=== PATIENT | female | born 1950 | race Caucasian/White ===

== ENCOUNTER 2017-05-28 09:38 | Observation (INO) ==
[2017-05-28] MEDS ORDERED: DILTIAZEM 25 MG/5 ML VIAL IV ONE (09:49)
--- NOTE | 2017-05-28 09:54 | Emergency Department Note ---
Chest Pain HPI - General Chief Complaint: Chest Pain Stated Complaint: Chest pain, heart palpitations, confusion Time Seen by Provider: 05/28/17 09:49 Source: patient Mode of arrival: ambulatory Limitations: altered mental status - History of Present Illness HPI Narrative: This patient began having chest tightness and tachycardia last evening. She says she slept fairly well through the night but when she got to work today she did not feel great and she continued to have tachycardia and chest tightness. She has had some cardiac workup in the past for chest tightness but has not had an angiogram. She has had trouble with confusion for a long period of time and has had a full neurologic evaluation by neurologist for that. There is nothing new from that standpoint. She also feels slightly short of breath. - Related Data Home Medications Medication Instructions Recorded Confirmed Eszopiclone [Lunesta] 3 mg PO HS 01/11/15 05/28/17 LORazepam [Ativan] 2 mg PO BID PRN 01/11/15 05/28/17 Nitroglycerin [Nitrostat] 0.4 mg SL Q5M PRN 01/11/15 08/31/15 Aspirin [Aspirin EC] 325 mg PO DAILY 08/31/15 09/05/15 Atorvastatin [Lipitor] 10 mg PO HS 08/31/15 05/28/17 Venlafaxine HCl [Venlafaxine HCl 150 mg PO DAILY 05/28/17 05/28/17 ER] buPROPion HCL [Bupropion Xl] 150 mg PO DAILY 05/28/17 05/28/17 Previous Rx's Medication Instructions Recorded Docusate Sodium [Colace] 100 mg PO BID #30 capsule 09/06/15 Methocarbamol [Robaxin] 750 mg PO Q6HP PRN #30 tablet 09/06/15 Allergies Allergy/AdvReac Type Severity Reaction Status Date / Time morphine Allergy Mild Itching Verified 09/05/15 07:42 codeine Allergy Unknown Unknown Verified 09/05/15 07:42 Review of Systems All systems ED: reviewed and negative except as stated. Chest Pain PMH - Past Medical History Medical history: Reports: arthritis, asthma, GERD, migraine, other (Rheumatic fever) Surgical history ED: Reports: hysterectomy, orthopedic, other, tonsillectomy - Social History smoking status: Never smoker Physical Exam Limitations: altered mental status General appearance: alert Head: atraumatic, normocephalic Eye: Present: normal appearance ENT: normal exam Neck: Present: normal inspection Chest: Present: normal inspection Respiratory: Present: normal lung sounds bilaterally Cardiovascular: Present: regular rate, normal rhythm, normal heart sounds Abdominal: Present: soft. Absent: distention, tenderness Neurological: Present: alert Psychiatric: Present: normal affect, normal mood Skin: Present: warm, dry, intact Course Vital Signs Temperature 99.1 F H 05/28/17 09:39 Pulse Rate 129 H 05/28/17 09:39 Respiratory Rate 18 05/28/17 09:39 Blood Pressure 149/117 05/28/17 09:39 Pulse Oximetry (%) 98 05/28/17 09:39 Temperature 97.7 F 05/29/17 04:00 Pulse Rate 72 05/29/17 03:00 Respiratory Rate 21 05/29/17 06:03 Blood Pressure 128/74 05/29/17 06:03 Pulse Oximetry (%) 94 05/29/17 05:01 Chest Pain - MDM Narrative Medical decision making narrative: Patient received diltiazem IV and her heart rate did come down. She was admitted to telemetry by Dr. Robison. - Lab Data Lab results reviewed: Yes I reviewed the patient's lab results. Result diagrams: 05/29/17 04:00 05/29/17 04:00 Lab Results 05/28/17 05/28/17 05/28/17 Range/Units 10:04 10:04 10:05 WBC 14.4 H (4.5-11.0) K/mcL RBC 5.19 (4.00-5.20) M/mcL Hgb 15.5 H (12.0-15.0) g/dL Hct 45.2 (36.0-48.0) % MCV 87.0 (80.0-100.0) fL MCH 29.8 (26.0-34.0) pg MCHC 34.3 (31.0-36.0) g/dL RDW 13.0 (11.5-14.5) % Plt Count 279 (140-440) K/mcL MPV 8.2 (7.4-10.4) fL Gran % 79.1 H (38.0-78.0) % Lymph % (Auto) 13.1 L (15.5-49.0) % [place] % (Auto) 5.5 (1.0-12.0) % Eos % (Auto) 2.0 (0.0-7.0) % Baso % (Auto) 0.3 (0.0-2.0) % Gran # 11.4 H (1.8-8.0) K/mcL Lymph # (Auto) 1.9 (1.5-4.8) K/mcL [place] # (Auto) 0.8 (0.1-0.9) K/mcL Eos # (Auto) 0.3 (0.0-0.7) K/mcL Baso # (Auto) 0 (0.0-0.3) K/mcL D-Dimer (0.00-0.40) ug/ml Sodium 144 (133-145) mmol/L Potassium 3.5 (3.3-5.1) mmol/L Chloride 107 (96-108) mmol/L Carbon Dioxide 20 L (22-30) mmol/L Anion Gap 17.0 H (8-16) BUN 19 (8-23) mg/dl Creatinine 0.8 (0.6-1.1) mg/dl GFR Calculation 77 Glucose 127 H (70-105) mg/dL Calcium 9.5 (8.6-10.4) mg/dl Total Bilirubin 0.5 (0.0-1.0) mg/dL AST 18 (0-37) U/l ALT 22 (0-40) U/l Alkaline Phosphatase 59 (39-117) U/L Troponin T < 0.01 (0-0.03) ng/ml Total Protein 6.7 (5.9-8.4) gm/dL Albumin 4.3 (3.2-5.2) gm/dL Globulin 2.4 (2.2-3.7) gm/dL Albumin/Globulin Ratio 1.8 (1.0-2.3) TSH 0.96 (0.27-5.01) uIU/ml Urine Color Urine Appearance Urine pH (5.0-9.0) Ur Specific [place] (1.000-1.035) Urine Protein (NEG) mg/dL Urine Glucose (UA) (NEG) mg/dL Urine Ketones (NEG) mg/dL Urine Occult Blood (<0.03) mg/dL Urine Nitrate (NEG) Urine Bilirubin (NEG) mg/dL Urine Urobilinogen (NEG) mg/dL Ur Leukocyte Esterase (NEG) /uL Urine RBC (0-1) /hpf Urine WBC (0-4) /hpf Ur Squamous Epith Cells (0-4) /hpf Urine Bacteria (0) /hpf Urine Mucus (0) /hpf Ur Culture Indicated? 05/28/17 05/28/17 Range/Units 10:05 10:37 WBC (4.5-11.0) K/mcL RBC (4.00-5.20) M/mcL Hgb (12.0-15.0) g/dL Hct (36.0-48.0) % MCV (80.0-100.0) fL MCH (26.0-34.0) pg MCHC (31.0-36.0) g/dL RDW (11.5-14.5) % Plt Count (140-440) K/mcL MPV (7.4-10.4) fL Gran % (38.0-78.0) % Lymph % (Auto) (15.5-49.0) % [place] % (Auto) (1.0-12.0) % Eos % (Auto) (0.0-7.0) % Baso % (Auto) (0.0-2.0) % Gran # (1.8-8.0) K/mcL Lymph # (Auto) (1.5-4.8) K/mcL [place] # (Auto) (0.1-0.9) K/mcL Eos # (Auto) (0.0-0.7) K/mcL Baso # (Auto) (0.0-0.3) K/mcL D-Dimer 0.30 (0.00-0.40) ug/ml Sodium (133-145) mmol/L Potassium (3.3-5.1) mmol/L Chloride (96-108) mmol/L Carbon Dioxide (22-30) mmol/L Anion Gap (8-16) BUN (8-23) mg/dl Creatinine (0.6-1.1) mg/dl GFR Calculation Glucose (70-105) mg/dL Calcium (8.6-10.4) mg/dl Total Bilirubin (0.0-1.0) mg/dL AST (0-37) U/l ALT (0-40) U/l Alkaline Phosphatase (39-117) U/L Troponin T (0-0.03) ng/ml Total Protein (5.9-8.4) gm/dL Albumin (3.2-5.2) gm/dL Globulin (2.2-3.7) gm/dL Albumin/Globulin Ratio (1.0-2.3) TSH (0.27-5.01) uIU/ml Urine Color Yellow Urine Appearance Clear Urine pH 5.0 (5.0-9.0) Ur Specific [place] 1.024 (1.000-1.035) Urine Protein Neg (NEG) mg/dL Urine Glucose (UA) Negative (NEG) mg/dL Urine Ketones Neg (NEG) mg/dL Urine Occult Blood 0.2 A (<0.03) mg/dL Urine Nitrate Neg (NEG) Urine Bilirubin Neg (NEG) mg/dL Urine Urobilinogen Neg (NEG) mg/dL Ur Leukocyte Esterase Neg (NEG) /uL Urine RBC 3 H (0-1) /hpf Urine WBC 1 (0-4) /hpf Ur Squamous Epith Cells 1 (0-4) /hpf Urine Bacteria 0 (0) /hpf Urine Mucus Many A (0) /hpf Ur Culture Indicated? No - Radiology Data Radiology results reviewed: Yes I reviewed the patient's radiology results. Disposition Pt seen by [facility] only: No Clinical Impression: Atrial fibrillation with RVR Disposition: Xfer As Inpt ([facility]) Condition: Fair
[2017-05-28] MEDS ORDERED: LACTATED RINGERS 1,000 ML IV SCH (10:00)
[2017-05-28] MEDS ORDERED: DILTIAZEM 125 MG in DEXTROSE 5% IN WATER 100 ML IV SCH (10:00)
--- NOTE | 2017-05-28 10:09 | XRay Report ---
HISTORY: Reason for Exam:chest pain FINDINGS: The lungs are clear and well expanded. The heart size, pulmonary vasculature, mediastinum, flavia and pleura are normal. There is a prosthesis in the left shoulder. Thoracic spine has a moderate dextroscoliotic curvature. IMPRESSION: Scoliosis but otherwise normal chest Interpreted and Authenticated by: Arjun Mcrae 05/28/17
[2017-05-28 10:31] LABS: Basophils # (Auto) 0 K/mcL (0.0-0.3); Basophils % (Auto) 0.3 % (0.0-2.0); Eosinophils # (Auto) 0.3 K/mcL (0.0-0.7); Granulocytes % (Auto) 79.1 % (38.0-78.0); Lymphocytes # (Auto) 1.9 K/mcL (1.5-4.8); Lymphocytes % (Auto) 13.1 % (15.5-49.0); Mean Corpuscular HGB Conc 34.3 g/dL (31.0-36.0); Mean Corpuscular Hemoglobin 29.8 pg (26.0-34.0); Monocytes # (Auto) 0.8 K/mcL (0.1-0.9); Monocytes % (Auto) 5.5 % (1.0-12.0); Platelet Count 279 K/mcL (140-440); RBC 5.19 M/mcL (4.00-5.20)
[2017-05-28 11:06] LABS: ALT/SGPT 22 U/l (0-40); Albumin 4.3 gm/dL (3.2-5.2); Albumin/Globulin Ratio 1.8 (1.0-2.3); Alkaline Phosphatase 59 U/L (39-117); Blood Urea Nitrogen 19 mg/dl (8-23)
[2017-05-28 11:13] LABS: Appearance,Urine CLEAR; Bacteria,Urine 0 /hpf (0); Bilirubin,Urine NEG (NEG); Color,Urine YELLOW; Glucose,Urine (UA) NEGATIVE (NEG); Leukocyte Esterase,Urine NEG /uL (NEG); Mucus,Urine MANY /hpf (0); Protein,Urine NEG (NEG); Specific Gravity,Urine 1.024 (1.000-1.035); Urine Blood 0.2 mg/dL (<0.03); Urine RBC 3 /hpf (0-1); Urine Squamous Epithelial Cell 1 /hpf (0-4); Urine WBC 1 /hpf (0-4); Urobilinogen,Urine NEG (NEG)
[2017-05-28] MEDS ORDERED: LORazepam 2 MG/ML VIAL IV ONE (11:37)
[2017-05-28] MEDS ORDERED: NALOXONE HCL 0.4 MG/ML VIAL IV PRN (13:05)
[2017-05-28] MEDS ORDERED: IPRATROPIUM/ALBUTEROL 3 ML AMPUL.NEB NEB PRN (13:05)
[2017-05-28] MEDS ORDERED: 0.9 % SODIUM CHLORIDE 1,000 ML IV SCH (13:05)
[2017-05-28] MEDS: 0.9 % SODIUM CHLORIDE 10 ML SYRINGE IV SCH ×2 (15:22→21:56)
[2017-05-28] MEDS: METOPROLOL TARTRATE 25 MG TABLET PO SCH ×2 (15:25→20:47)
--- NOTE | 2017-05-28 15:36 | Internal Med History&Physical ---
Medical - H&P: HPI Patient information: Note initiated : 05/28/17 at 3:30 pm Service Date, if different from initiated Date: [] Patient: Vandana Roberson a 67 y/o F admitted on 05/28/17 for Chest pain, heart palpitations, confusion. Chief Complaint: [] History of present illness: Ms. Roberson is a 67 year old Female with h/o cardiac murmur, h/o rheumatic fever as a child presents to the ER today with complaints of palpitations x 1 day. The patient notes that she has been going through a rough phase in her life, due to of her daughter, she has not been herself due to that fact. The patient has increased tiredness and fatigue, which has been worsening since the of her daughter. She has attributed these symptoms to depression. She is being treated for same by primary care provider. patient has had palpitations intermittently in the past. She also has had chest pain intermittently at rest and takes when necessary nitroglycerin. According to her. She is worked up for cardiac disease and notes that her stress tests done in the past have been negative. Does not recollect having done a cardiac catheterization This time around. Since last night. The patient has been experiencing palpitations, some shortness of breath and chest tightness associated with that. She notes that last night she did not want to come to the emergency social slept it off. This morning at work she felt it again and it was making her slightly dizzy and made her more weak and fatigued. She therefore came to the emergency room for further evaluation. She denies any headache, does have intermittent dizziness, no acute changes in vision, no difficulty or change in hearing, no difficulty in swallowing, had some nausea, no vomiting. Chronic constipation. No diarrhea. No urinary complaints. She has a chronic dry cough. She denies any acute joint pains or back pain. Skin rashes. Admits depression in the emergency room the patient was noted to be in atrial fibrillation, rapid ventricular rate. She was started on IV Cardizem drip and admitted to the hospital for further management. Chest x-ray was reported as negative, urinalysis is negative, few rbc's noted. Patient had leukocytosis, the patient has a limited effort tolerance, denies edema, feet. She denies any history of hypertension, but does not that her blood pressure has run high intermittently. Does not take any medications for same. No history of diabetes , no history of heart failure, no history of stroke. She has history of rheumatic fever, has a heart murmur, not sure if she has rheumatic heart disease. She is willing to consider anticoagulation for stroke prophylaxis. All systems: reviewed and no additional remarkable complaints except as stated ( as per HPI) Medical - H&P: PMH Medical history: rheumatic fever Depression Hyperlipidemia Obesity Surgical history: tubal ligation Hysterectomy Shoulder repair Cyst removal from right kidney Pertinent family history: Mother with history of cardiac disease and myocardial infarction before the age of 65 Family history of diabetes Social history: Works as a social work job titles in [employer] Denies smoking, used to smoke in the past more than 30 years ago Denies alcohol abuse Denies recreational drug use Medical - H&P: Meds Home Medications Medication Instructions Recorded Confirmed Type Eszopiclone [Lunesta] 3 mg PO HS 01/11/15 05/28/17 History LORazepam [Ativan] 2 mg PO BID PRN 01/11/15 05/28/17 History Nitroglycerin [Nitrostat] 0.4 mg SL Q5M PRN 01/11/15 08/31/15 History Aspirin [Aspirin EC] 325 mg PO DAILY 08/31/15 09/05/15 History Atorvastatin [Lipitor] 10 mg PO HS 08/31/15 05/28/17 History Docusate Sodium [Colace] 100 mg PO BID #30 capsule 09/06/15 Rx Methocarbamol [Robaxin] 750 mg PO Q6HP PRN #30 tablet 09/06/15 Rx Venlafaxine HCl [Venlafaxine HCl 150 mg PO DAILY 05/28/17 05/28/17 History ER] buPROPion HCL [Bupropion Xl] 150 mg PO DAILY 05/28/17 05/28/17 History Allergies Allergy/AdvReac Type Severity Reaction Status Date / Time morphine Allergy Mild Itching Verified 09/05/15 07:42 codeine Allergy Unknown Unknown Verified 09/05/15 07:42 Medical - H&P: Exam - Constitutional Vitals: Temp Pulse Resp BP Pulse Ox 97.6 F 89 16 138/91 98 05/28/17 14:01 05/28/17 12:31 05/28/17 14:01 05/28/17 14:01 05/28/17 14:01 Exam: GENERAL: The patient is a well-developed, well-nourished in no apparent distress. Is alert and oriented x3. VITAL SIGNS: Reviewed and as noted elsewhere. HEENT: Head is normocephalic and atraumatic. Extraocular muscles are intact. Pupils are equal, round, and reactive to light. Nares appeared normal. Mouth appears any without lesions. Mucous membranes are moist. NECK: Normal to inspection, Supple, No lymphadenopathy or thyromegaly. LUNGS: Air entry equal on both sides, no wheezing, crackles or rhonchi noted. No accessory muscles of respiration HEART: Regular tachycaric, irregular rhythm, systolic murmur, mitral region, 4/ 6 S1 and S2 heard, no Gallop, S3 or Rub Noted, ABDOMEN: Soft, nontender, and nondistended. Positive bowel sounds. No hepatosplenomegaly was noted. EXTREMITIES: No cyanosis, clubbing, rash, lesions or edema. NEUROLOGIC: Cranial nerves II through XII are grossly intact. Motor and Sensory System Grossly Intact PSYCHIATRIC: Normal affect, Normal Mood. Appropriate Behavior. SKIN: No ulceration or wounds noted, No jaundice, No rash noted. Medical - H&P: Reslt - Labs CBC & Chem 7: 05/28/17 10:05 05/28/17 10:04 Labs: Short CBC 05/28/17 Range/Units 10:05 WBC 14.4 H (4.5-11.0) K/mcL Hgb 15.5 H (12.0-15.0) g/dL Hct 45.2 (36.0-48.0) % Plt Count 279 (140-440) K/mcL BMP 05/28/17 10:04 Sodium 144 Potassium 3.5 Chloride 107 Carbon Dioxide 20 L BUN 19 Creatinine 0.8 Glucose 127 H Calcium 9.5 Cardiac Enzymes 05/28/17 Range/Units 10:04 Troponin T < 0.01 (0-0.03) ng/ml Liver Function 05/28/17 Range/Units 10:04 Total Bilirubin 0.5 (0.0-1.0) mg/dL AST 18 (0-37) U/l ALT 22 (0-40) U/l Alkaline Phosphatase 59 (39-117) U/L Albumin 4.3 (3.2-5.2) gm/dL Urine 05/28/17 Range/Units 10:37 Urine Color Yellow Urine Appearance Clear Urine pH 5.0 (5.0-9.0) Ur Specific [place] 1.024 (1.000-1.035) Urine Protein Neg (NEG) mg/dL Urine Glucose (UA) Negative (NEG) mg/dL Medical - H&P: A/P - Narrative A/P Narrative: A/P Atrial fibrillation with RVR: monitor on PCU, on cardizem drip, start on po metoprolol and wean off drip as tolerated, [id number] score is 2, will need anticoagulation with coumadin, will start lovenox and warfarain treatment. Major risks benefits of the medication discussed, all questions answered. If echo does not show rheumatic heart disease, can consider newer anticoagulation agents. Get echo, denies any h/o significant bleeding. Depression/ Insomnia: Due to loss of daugther, resume home meds leucocytosis: chr cough, x ray negt, ua neg, check procalcitonin. DVT on lovenox. Diet Regular Full code
[2017-05-28] MEDS: ENOXAPARIN 100 MG/ML SYRINGE SQ SCH (16:08)
[2017-05-28] MEDS: LORazepam 1 MG TABLET PO PRN (16:08)
[2017-05-28] MEDS: 0.9 % SODIUM CHLORIDE 250 ML IV SCH ×2 (17:00→19:45)
[2017-05-28] MEDS: ACETAMINOPHEN 325 MG TABLET PO PRN (17:44)
[2017-05-28] MEDS: DOCUSATE SODIUM 100 MG CAPSULE PO SCH (20:47)
[2017-05-28] MEDS ORDERED: ATORVASTATIN 20 MG TABLET PO SCH (21:00)
[2017-05-28] MEDS ORDERED: SENNOSIDES 1 TABLET PO PRN (21:00)
[2017-05-28] MEDS ORDERED: Eszopiclone [Lunesta] 3 MG PO SCH (21:00)
[2017-05-28] MEDS: DILTIAZEM 125 MG in DEXTROSE 5% IN WATER 100 ML IV SCH (21:56)
[2017-05-28] MEDS ORDERED: HEPARIN 5,000 UNIT/ML VIAL SQ SCH (22:00)
[2017-05-29] MEDS: ENOXAPARIN 100 MG/ML SYRINGE SQ SCH ×2 (00:35→08:40)
[2017-05-29] MEDS: 0.9 % SODIUM CHLORIDE 10 ML SYRINGE IV SCH ×2 (05:38→14:08)
[2017-05-29 05:40] LABS: Basophils # (Auto) 0 K/mcL (0.0-0.3); Basophils % (Auto) 0.4 % (0.0-2.0); Eosinophils # (Auto) 0 K/mcL (0.0-0.7); Eosinophils % (Auto) 0.6 % (0.0-7.0); Granulocytes % (Auto) 57.8 % (38.0-78.0); Lymphocytes # (Auto) 2.1 K/mcL (1.5-4.8); Lymphocytes % (Auto) 31.9 % (15.5-49.0); Mean Cell Volume 86.3 fL (80.0-100.0); Mean Corpuscular HGB Conc 34.1 g/dL (31.0-36.0); Mean Corpuscular Hemoglobin 29.4 pg (26.0-34.0); Monocytes # (Auto) 0.6 K/mcL (0.1-0.9); Monocytes % (Auto) 9.3 % (1.0-12.0); Platelet Count 244 K/mcL (140-440); RBC 4.51 M/mcL (4.00-5.20); Red Cell Distribution Width 12.5 % (11.5-14.5)
[2017-05-29 05:49] LABS: ALT/SGPT 18 U/l (0-40); Albumin 3.6 gm/dL (3.2-5.2); Albumin/Globulin Ratio 1.7 (1.0-2.3); Alkaline Phosphatase 50 U/L (39-117); Bilirubin,Direct < 0.2 mg/dL (0.0-0.3); Blood Urea Nitrogen 14 mg/dl (8-23); Gamma Glutamyl Transpeptidase 32 U/L (5-36); Uric Acid 4.2 mg/dL (2.5-8.0)
[2017-05-29] MEDS: ACETAMINOPHEN 325 MG TABLET PO PRN (08:38)
[2017-05-29] MEDS: METOPROLOL TARTRATE 25 MG TABLET PO SCH (08:39)
[2017-05-29] MEDS: buPROPion 150 MG TAB.XL.24H PO SCH ×2 (08:40→08:47)
[2017-05-29] MEDS ORDERED: VENLAFAXINE 75 MG CAP.XL.24H PO SCH (09:00)
[2017-05-29] MEDS: DOCUSATE SODIUM 100 MG CAPSULE PO SCH (09:47)
[2017-05-29] MEDS: HYDROmorphone 2 MG/ML VIAL IV PRN ×2 (09:58→14:08)
[2017-05-29] MEDS: ONDANSETRON 4 MG/2 ML VIAL IV PRN ×2 (10:04→14:07)
[2017-05-29] MEDS: DILTIAZEM 125 MG in DEXTROSE 5% IN WATER 100 ML IV SCH (10:14)
[2017-05-29] MEDS: 0.9 % SODIUM CHLORIDE 250 ML IV SCH (10:14)
--- NOTE | 2017-05-29 10:16 | Cat Scan Report ---
History: Headaches Findings: The brain was imaged without contrast at 2.5 mm intervals. There is mild generalized atrophy, predominantly involving the frontal and temporal lobes. The lateral and third ventricles are mildly dilated. This is somewhat out of proportion to the underlying atrophy. The ventricular dilatation has increased since the prior MRI done on 01/11/15. There are subtle areas of decreased attenuation in the white matter within the centrum semiovale in both frontal lobes. Scattered white matter lesions were seen bilaterally on the prior MRI. There is no evidence of an acute infarct. No hemorrhage or mass effect are present. There is no abnormal extra-axial fluid collection. The visualized sinuses are clear. Impression: Borderline hydrocephalus, accentuated by mild atrophy Mild chronic white matter disease in the frontal lobes which may be due to white matter ischemia or degeneration Interpreted and Authenticated by: Arjun Mcrae 05/29/17
[2017-05-29] MEDS: LORazepam 1 MG TABLET PO PRN (12:26)
[2017-05-29] MEDS ORDERED: NITROGLYCERIN 0.4 MG TAB.SUBL SL PRN (13:48)
--- NOTE | 2017-05-29 15:31 | Discharge Summary ---
Medical - DS: Prov Patient information: Note initiated : 05/29/17 at 3:22 pm Service Date, if different from initiated Date: [] Patient: Vandana Roberson 67 y/o F admitted on 05/28/17 for Chest Pain,Heart Palpitations,Confusion/Afib w/RVR. Chief Complaint: [] Date of admission: 05/28/17 13:00 Discharge date: 05/29/17 Primary care physician: Linda Terry Admitting clinician: Milton Robison Consults: 05/28/17 10:26 Consult to Physician [CONS] Stat Comment: Consulting Provider: Milton Robison Reason For Exam: Physician to Consult Discharging clinician: Milton Robison Medical - DS: Meds - Discharge Medications Prescriptions: Apixaban [Eliquis] 5 mg PO BID #60 tab HYDROmorphone HCL [Dilaudid] 2 mg PO Q6HP PRN #10 tab PRN Reason: Headache Metoprolol Tartrate [Lopressor] 25 mg PO BID #60 tab Active and Home Medications: Home Medications Eszopiclone [Lunesta] 3 mg PO HS 01/11/15 [History Confirmed 05/28/17 Last Taken 09/04/15] LORazepam [Ativan] 2 mg PO BID PRN 01/11/15 [History Confirmed 05/28/17 Last Taken 09/04/15] Nitroglycerin [Nitrostat] 0.4 mg SL Q5M PRN 01/11/15 [History Confirmed Last Taken Unknown] Aspirin [Aspirin EC] 325 mg PO DAILY 08/31/15 [History Confirmed 09/05/15 Last Taken 08/29/15] Atorvastatin [Lipitor] 10 mg PO HS 08/31/15 [History Confirmed 05/28/17 Last Taken 09/04/15] Docusate Sodium [Colace] 100 mg PO BID #30 capsule 09/06/15 [Rx Last Taken Unknown] Methocarbamol [Robaxin] 750 mg PO Q6HP PRN #30 tablet 09/06/15 [Rx Last Taken Unknown] Venlafaxine HCl [Venlafaxine HCl ER] 150 mg PO DAILY 05/28/17 [History Confirmed 05/28/17 Last Taken Unknown] Medical - DS: Hosp Hospital course: Ms. Roberson is a 67 year old Female with h/o cardiac murmur, h/o rheumatic fever as a child presented to the ER today with complaints of palpitations x 1 day. The patient has had palpitations intermittently in the past. This time she has noted palpitations since the night before admission, which was associated with diziness, and again the day of admission and hence came to the ER. in the emergency room the patient was noted to be in atrial fibrillation, rapid ventricular rate. She was started on IV Cardizem drip and admitted to the hospital for further management. Chest x-ray was reported as negative, urinalysis is negative, few rbc's noted. Patient had leukocytosis, She has history of rheumatic fever, has a heart murmur, not sure if she has rheumatic heart disease. Atrial fibrillation: new onset, treated with IV cardizem drip, switched to po metoprolol to which she responded well. she will be discharged on PO metoprolol tartate 25mg bid. She had a echo done which showed LVH, hyperdynamic LV, normal LVEF, dialated LA, no significant valvular pathology. The patient has a CHADSVASC score of 3. She is a candiate for anticoagulation. Started on eliquis 5mg bid. Major risks benefits of the medication discussed, all questions answered. Afib likely secondary to Chr HTN. HTN: patient reports that she has had high bp in the past but not treated, she did have elevated bp during the hospital stay, more importantly she has LVH on the echo which likely is due to long standing HTN, she would warrant a more aggressive BP control, would titrate medications as outpatient, may need FESTUS/ ARB. Will leave this decision to PCP. Headache: During the hospital stay, patient reported headache, worst migraine headache she had, since she was started on anticoagulation CT head was done which was neg for hemorrhage, but did show worsening hydrocephalus, it seems patient has h/o dilated ventricles based on previous imaging and there is some worsening this time in comparison with the CT. The patent follows with Dr Douglas , advised to follow up with her for further treatment. Not sure if this is playing a role in the headaches. The pt had a low grade temp during hospital stay, cxr neg, ua neg, (has chr microscopic hematuria), and procalcitonin neg, CT head neg for sinusitis. The rest of the stay in the hospital was uneventful. At the time of discharge pt is ambulatory, tolerating po diet well and not in distress. Discharge diagnosis: Atrial fibrillation new onset, - Time Spent with Patient Total time spent providing and/or coordinating discharge services: Greater than 30 minutes Medical - DS: Exam - Constitutional Vitals: Vital Signs Temp Pulse Resp BP Pulse Ox 05/29/17 14:00 18 150/97 96 05/29/17 13:01 16 132/71 96 05/29/17 12:01 99.6 F H 162/82 97 05/29/17 11:01 165/90 96 05/29/17 10:21 154/85 95 05/29/17 09:29 151/77 96 05/29/17 09:23 133/74 95 05/29/17 08:43 98.3 F 123/94 97 05/29/17 07:03 18 142/79 97 05/29/17 07:00 97 05/29/17 06:03 21 128/74 05/29/17 05:01 20 123/70 94 05/29/17 04:17 19 130/68 95 05/29/17 04:00 97.7 F 19 130/68 95 05/29/17 03:00 72 22 108/60 93 05/29/17 02:00 63 21 124/67 96 05/29/17 01:00 22 109/64 96 05/29/17 00:00 96.7 F L 71 20 101/52 94 05/28/17 23:00 74 26 H 115/54 96 05/28/17 22:12 73 25 H 100/56 94 05/28/17 22:11 69 16 100/56 95 05/28/17 21:01 67 17 129/72 95 05/28/17 20:01 99.0 F H 14 106/71 05/28/17 19:58 99.0 F H 94 H 18 106/71 96 05/28/17 19:03 99.9 F H 19 111/77 96 05/28/17 18:58 31 H 05/28/17 18:29 99.0 F H 05/28/17 18:12 82 17 96 05/28/17 18:01 98.1 F 19 117/63 98 05/28/17 17:01 98.1 F 15 111/84 98 05/28/17 16:10 99.0 F H 72 20 109/89 98 05/28/17 16:09 82 17 96 05/28/17 16:00 15 124/109 Intake and Output 05/29/17 05/29/17 05/29/17 05:59 13:59 21:59 Intake Total 340 / 340 Output Total 925 / 925 975 / 975 700 / 700 Balance -925 / -925 -635 / -635 -700 / -700 Intake: Oral 340 / 340 Output: Void Amount 925 / 925 975 / 975 700 / 700 Other: Meal Breakfast Percent of Meal Consumed 100% Feeding Ability Independent # Voids 1 1 2 Additional comments: Constitutional; Afebrile, cooperative, alert, not in distress. Eyes- No icterus, , No periorbital swelling Ears- Ext ear normal, hearing normal to conversation. Neck- Midline trachea, supple Respiratory system: Air Entry equal on both sides, No crackles or wheezing, no rhonchi. CVS- Rate normal rhythm irregular, S1,S2 heard, no gallop, no rub. Abdomen- Soft nontender abdomen, no organomegaly, no tenderness, no guarding or rigidity, [employer]- AOOx3, moving all extremities, no gross focal deficit noted. Medical - DS: Data Procedures and tests throughout hospitalization: Chest X ray IMPRESSION: Scoliosis but otherwise normal chest Head CT History: Headaches Findings: The brain was imaged without contrast at 2.5 mm intervals. There is mild generalized atrophy, predominantly involving the frontal and temporal lobes. The lateral and third ventricles are mildly dilated. This is somewhat out of proportion to the underlying atrophy. The ventricular dilatation has increased since the prior MRI done on 01/11/15. There are subtle areas of decreased attenuation in the white matter within the centrum semiovale in both frontal lobes. Scattered white matter lesions were seen bilaterally on the prior MRI. There is no evidence of an acute infarct. No hemorrhage or mass effect are present. There is no abnormal extra-axial fluid collection. The visualized sinuses are clear. Impression: Borderline hydrocephalus, accentuated by mild atrophy Mild chronic white matter disease in the frontal lobes which may be due to white matter ischemia or degeneration Labs on day of discharge: Labs from last 24 hours 05/29/17 05/29/17 05/28/17 04:00 04:00 15:30 WBC 6.5 RBC 4.51 Hgb 13.3 Hct 38.9 MCV 86.3 MCH 29.4 MCHC 34.1 RDW 12.5 Plt Count 244 MPV 8.1 Gran % 57.8 Lymph % (Auto) 31.9 [place] % (Auto) 9.3 Eos % (Auto) 0.6 Baso % (Auto) 0.4 Gran # 3.8 Lymph # (Auto) 2.1 [place] # (Auto) 0.6 Eos # (Auto) 0 Baso # (Auto) 0 Sodium 144 Potassium 3.7 Chloride 109 H Carbon Dioxide 21 L Anion Gap 14.0 BUN 14 Creatinine 0.7 GFR Calculation 91 Glucose 88 Uric Acid 4.2 Calcium 8.7 Phosphorus 3.2 Magnesium 2.0 Total Bilirubin 0.5 Direct Bilirubin < 0.2 GGT 32 AST 15 ALT 18 Alkaline Phosphatase 50 Lactate Dehydrogenase 164 Troponin T Total Protein 5.7 L Albumin 3.6 Globulin 2.1 L Albumin/Globulin Ratio 1.7 Triglycerides 121 Procalcitonin < 0.05 05/28/17 15:30 WBC RBC Hgb Hct MCV MCH MCHC RDW Plt Count MPV Gran % Lymph % (Auto) [place] % (Auto) Eos % (Auto) Baso % (Auto) Gran # Lymph # (Auto) [place] # (Auto) Eos # (Auto) Baso # (Auto) Sodium Potassium Chloride Carbon Dioxide Anion Gap BUN Creatinine GFR Calculation Glucose Uric Acid Calcium Phosphorus Magnesium Total Bilirubin Direct Bilirubin GGT AST ALT Alkaline Phosphatase Lactate Dehydrogenase Troponin T < 0.01 Total Protein Albumin Globulin Albumin/Globulin Ratio Triglycerides Procalcitonin Medical - DS: A/P - Patient/Caregiver Discharge Instructions Activity: increase activity as tolerated Diet: Cardiac Additional Instructions: You have been diagnosed with new onset Atrial fibrillation. This puts you at a high risk of stroke, and therefore a new medication eliquis has been prescribed DO not take aspirin, or other NSAIDS with this medication as it will increase the risk of bleeding. Look for blood in urine, stools or black stools (indicates blood in stomach), and go to the ER promptly if you notice them GO to the ER if chest pain, shortness of breath, fever or any other acute concern Follow up with Dr Douglas as per previous schedule. Follow up with PCP and Dr Downey in 1-2 weeks You are being prescribed a short course of opiates (hydromorphone) for headache , do not drive when using this medication, do not drink alcohol with this medication, do not take this with any other sedative medication. Use this Medication only if your conventional medication for headache do not work. - Follow up Plan Follow up with: Linda Terry MD [Primary Care Provider] - 06/03/17 10:00 am Khris Downey MD [Physician] - 06/27/17 10:20 am (Your appointment is scheduled with Dr. Jimenes; please check in at 9:50.) Disposition: Home, Self-Care Prognosis: Fair Rehab Potential: Fair I certify that the patient requires SNF services: No Overall status at discharge: patient is progressing back to baseline Medical - DS: Qual - VTE Deep Vein Thrombosis/Pulmonary Embolism Present on Admission: No
[2017-05-29] MEDS ORDERED: PNEUMOCOCCAL 23-VAL P-SAC VAC 0.5 ML VIAL IM ONE (16:15)
== END 2017-05-29 16:45 | disposition home or self-care (01) ==
LOC: ED 09:38 → ICU 09:38
PROVIDERS: ADMIT Internal Medicine; ATTEND Internal Medicine